=== PATIENT | male | born 1970 | race Caucasian/White ===

== ENCOUNTER 2021-04-17 00:34 | Emergency (ER) | payer OTHER, MEDICARE, SELFPAY ==
[2021-04-17 00:48] VITALS: BP 151/91; PULSE 83; RESP 18; TEMP 36.4; O2SAT 95; BMI 36.6
--- NOTE | 2021-04-17 00:54 | W.ED.EXTPRO ---
HPI - Extremity Problem General: Chief complaint: Extremity Injury, Upper Stated complaint: Back and Left Arm Pain Time Seen by Provider: 04/17/21 00:54 History of Present Illness: HPI Narrative: Patient comes in today with complaints of left shoulder pain for about 3 weeks now. Patient reports today he drove in from [facility] which was about 7[place]. Tonight he has neck discomfort and left shoulder discomfort that is worse than his usual pain. Patient reports he is able to get some relief of pain if he holds his shoulder up. Patient also reports some numbness in his second and third finger. Patient appears well otherwise. Patient denies any history of cardiac disease. Patient does take medications for diabetes type 2. Review of Systems General: Reports: 10 or more systems reviewed and unremarkable except in HPI and below Musc: Reports: neck pain Physical Exam Const: COMMON NORMALS: no acute distress and patient oriented x3 GENERAL APPEARANCE: cooperative HENMT: COMMON NORMALS: normocephalic and Normal external nose present HEAD & SCALP: normal to inspection and normocephalic NOSE: Normal external nose present Eye: GENERAL EYE: appearance normal, both eyes and all related structures Neck/C-Spine: CERVICAL SPINE: Yes pain with cervical ROM, Yes Paracervical muscle tenderness left and Yes Paracervical spasm left Chest: COMMONS NORMALS: normal inspection of the chest Resp: COMMON NORMALS: normal respiratory effort EFFORT & INSPECTION: Yes able to speak in complete sentences Cardio: COMMON NORMALS: regular rate and regular rhythm RATE: regular rate RHYTHM: regular rhythm GI: COMMON NORMALS: non-tender : COMMON NORMALS: Yes no CVA tenderness BLADDER/KIDNEY EXAM: Yes no CVA tenderness Back/Pelvis: COMMON NORMALS: no CVA tenderness and thoracic and lumbar spine normal to inspection Extremity: COMMON NORMALS: normal to inspection Neuro: COMMON NORMALS: patient oriented x3 and moves all extremities Psych: COMMON NORMALS: mental status grossly normal and cooperative Skin: COMMON NORMALS: no rashes or lesions noted GENERAL SKIN EXAM: no rashes or lesions noted Course Vital Signs: Vital signs: Vital Signs Temperature 97.5 F L 04/17/21 00:48 Pulse Rate 83 04/17/21 00:48 Respiratory Rate 18 04/17/21 00:48 Blood Pressure 151/91 04/17/21 00:48 Pulse Oximetry 95 04/17/21 00:48 MDM - Extremity (Nontraumatic) MDM Narrative: Medical decision making narrative: Patient comes in today with complaints of left shoulder pain and neck discomfort. On exam patient has muscle tenderness and tightness to the left paracervical muscles and left trapezius. Patient has good range of motion of the shoulder. Patient does have some numbness in his index and middle finger of his left hand. Vital signs are normal. Differential diagnosis includes intervertebral disc disease, facet arthropathy, muscle strain. Reviewed exam with patient with recommendations for treatment and follow-up. Patient reported understanding and agreed to plan. Discharge Plan Discharge Patient Disposition: Home Clinical Impression: Cervical radiculopathy Condition: Stable Prescriptions: New naproxen 500 mg tablet 500 mg PO BID Qty: 20 RF: 0 tizanidine 4 mg tablet 4 mg PO Q8H PRN (Reason: muscle spasticity) Qty: 15 RF: 0 hydrocodone-acetaminophen 5-325 mg tablet 1 tab PO Q8H PRN (Reason: pain) Qty: 9 RF: 0 Discharge Orders: Discharge ED (Routine); Ordered 04/17/21 Ordered By: Kermit Hough Discharge Diet: Usual diet Discharge Activity: Increase activity as tolerated Patient Instructions: Cervical Radiculopathy (ED), Opioid Safety Activity Restrictions/Additional Instructions: Activity as tolerated. Use acetaminophen to help control pain. Take naproxen routinely twice a day for pain and inflammation. Do not use ibuprofen with naproxen. Use hydrocodone for breakthrough pain. Use tizanidine as needed for muscle spasms. Drink plenty of water with medication. Follow-up with primary care for further instruction. Return to the ER for new concerns or worsening symptoms. Coding Level of Care Code ED [employer] for [facility] Fwd Exam Comprehensive
[2021-04-17] MEDS: naproxen 500 mg Tablet PO (01:23)
[2021-04-17] MEDS: HYDROcodone-acetaminophen 5-325 mg Tablet 1 TAB PO (01:23)
== END 2021-04-17 01:26 | disposition home or self-care (01) ==
PROVIDERS: Emergency Provider Nurse Practitioner Family
DX: M54.12 Radiculopathy, cervical region (principal)
CPT/HCPCS: 99283